=== PATIENT | male | born 2000 | race Caucasian/White ===

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

== ENCOUNTER 2019-09-24 18:37 | Emergency (ER) | payer MEDICAID ==
--- NOTE | 2019-09-24 19:03 | ERPHSYRPT ---
- History of Present Illness Time Seen by Provider: 09/24/19 18:49 Source: patient Exam Limitations: no limitations Patient Subjective Stated Complaint: PT states "I am pretty sure I have a hemmrhoid. I also vomited yesterday and it looked like I threw up a can of chew , it was grainy." Triage Nursing Assessment: Pt presented alert and oriented X 3, skin pwd Pt ambulates with an upright steady gait, able to speak in clear full sentences pt in no apparent respiratory distress. Physician History: 19 years old male presented in the ER with a chief complaint of rectal pain and possible hemorrhoids. Patient reports he has been having loose watery stool for the last couple of days and usually he has constipation needing to strain. For the last couple of days he has noticed a small lump coming out and at times it gets reduced. No bleeding. Is complaining of dull to sharp pain moderate intensity without any significant aggravating or relieving factors. He has been taking a lot of ibuprofen lately and yesterday had a vomiting of coffee- ground color. He denies any epigastric or abdominal pain at present. No nausea. Allergies/Adverse Reactions: ketorolac tromethamine [From Toradol] Allergy (Mild, Verified 06/19/18 20:09) Hives CHEST BECAME RED ET INFLAMMED codeine [Codeine] Adverse Reaction (Mild, Verified 06/19/18 20:09) "WOUND UP" hydrocodone Adverse Reaction (Mild, Verified 06/19/18 20:09) "WOUND UP" Hx Tetanus, Diphtheria Vaccination/Date Given: Yes Hx Influenza Vaccination/Date Given: No Hx Pneumococcal Vaccination/Date Given: No Immunizations Up to Date: Yes Travel Risk - International Travel Have you traveled outside of the country in past 3 weeks: No Have you or anyone close to you been diagnosed with or: No Do your reside in a community with a known COVID-19 case?: Yes If Yes where:: [place] - Coronavirus Screening Has patient experienced Coronavirus symptoms: No - Review of Systems Constitutional: No Symptoms Eyes: No Symptoms, Foreign Body Sensation Respiratory: No Symptoms Cardiac: No Symptoms Genitourinary Symptoms: No Symptoms Musculoskeletal: No Symptoms Skin: No Symptoms Psychological: No Symptoms Endocrine: No Symptoms Hematologic/Lymphatic: No Symptoms Immunological/Allergic: No Symptoms - Past Medical History Pertinent Past Medical History: No Neurological History: No Pertinent History, Other ENT History: No Pertinent History Cardiac History: No Pertinent History Respiratory History: Asthma, Pneumonia Endocrine Medical History: No Pertinent History Musculoskeletal History: No Pertinent History GI Medical History: No Pertinent History History: No Pertinent History Psycho-Social History: Attention Deficit Disorder Male Reproductive Disorders: No Pertinent History Other Medical History: TUBES IN KEE EARS, kidney stones - Past Surgical History Past Surgical History: Yes Neuro Surgical History: No Pertinent History Cardiac: No Pertinent History Respiratory: No Pertinent History Gastrointestinal: No Pertinent History Genitourinary: No Pertinent History Musculoskeletal: Orthopedic Surgery Male Surgical History: No Pertinent History Other Surgical History: arches to bilat feet - Social History Smoking Status: Current every day smoker How long have you smoked: years Exposure to second hand smoke: Yes Alcohol Use: None Drug Use: none Patient Lives Alone: No Significant Family History: no pertinent family hx - Nursing Vital Signs Nursing Vital Signs: Initial Vital Signs Temperature 97.8 F 09/24/19 18:43 Pulse Rate 86 09/24/19 18:43 Respiratory Rate 18 09/24/19 18:43 Blood Pressure 135/76 09/24/19 18:43 O2 Sat by Pulse Oximetry 98 09/24/19 18:43 Pain Scale Pain Intensity 5 - Physical Exam General Appearance: no apparent distress Eye Exam: PERRL/EOMI Ears, Nose, Throat Exam: normal ENT inspection, pharynx normal Neck Exam: normal inspection, supple, full range of motion Respiratory Exam: normal breath sounds, lungs clear Cardiovascular Exam: regular rate/rhythm, normal heart sounds Gastrointestinal/Abdomen Exam: soft, normal bowel sounds, No tenderness, No distention, No mass, No guarding Rectal Exam: normal rectal tone, hemorrhoids (Small reducible hemorrhoid at 3 o' clock position. No bleeding. No fissure) Back Exam: normal inspection Extremity Exam: normal inspection Neurologic Exam: alert, oriented x 3, cooperative Skin Exam: normal color, warm SpO2 Interpretation: normal SpO2: 98 O2 Delivery: Room Air - Course Nursing assessment & vital signs reviewed: Yes Ordered Tests: Active Orders 24 hr Category Date Time Status CBC W DIFF Stat Lab 09/24/19 19:20 Completed CMP Stat Lab 09/24/19 19:20 Completed LIPASE Stat Lab 09/24/19 19:20 Completed Lab/Rad Data: Laboratory Result Diagrams 09/24/19 19:20 09/24/19 19:20 Laboratory Results 09/24/19 09/24/19 Range/Units 19:20 19:20 WBC 5.8 (4.0-10.5) K/mm3 RBC 4.79 (4.1-5.6) M/mm3 Hgb 13.5 (12.5-18.0) gm/dl Hct 40.5 L (42-50) % MCV 84.6 (78-100) fl MCH 28.2 (26-32) pg MCHC 33.3 (32-36) g/dl RDW 13.3 (11.5-14.0) % Plt Count 201 (150-450) K/mm3 MPV 10.6 (7.5-11.0) fl Gran % 38.1 (36.0-66.0) % Eos # (Auto) 0.14 (0-0.5) Absolute Lymphs (auto) 2.91 (1.0-4.6) Absolute Monos (auto) 0.51 (0.0-1.3) Lymphocytes % 49.9 H (24.0-44.0) % Monocytes % 8.7 (0.0-12.0) % Eosinophils % 2.4 (0.00-5.0) % Basophils % 0.9 (0.0-0.4) % Absolute Granulocytes 2.22 (1.4-6.9) Basophils # 0.05 (0-0.4) Sodium 142 (137-145) mmol/L Potassium 3.4 L (3.5-5.1) mmol/L Chloride 104 (98-107) mmol/L Carbon Dioxide 29 (22-30) mmol/L Anion Gap 12.3 (5-15) MEQ/L BUN 12 (9-20) mg/dL Creatinine 0.81 (0.66-1.25) mg/dL Estimated GFR > 60.0 ML/MIN Glucose 89 (74-106) mg/dL Calcium 9.4 (8.4-10.2) mg/dL Total Bilirubin 0.70 (0.2-1.3) mg/dL AST 15 L (17-59) U/L ALT 12 (0-50) U/L Alkaline Phosphatase 56 (38-126) U/L Serum Total Protein 6.8 (6.3-8.2) g/dL Albumin 4.4 (3.5-5.0) g/dL Lipase 33 (23-300) U/L - Progress Progress: unchanged, pain not gone completely Progress Note: 19 years old is evaluated for hemorrhoids and recommended Anusol cream, increase fiber supplement and stool softener. Patient reported having some coffee-ground emesis and epigastric pain and also taking lots of NSAIDs recently. I have checked H&H which is normal and renal functions are normal. Advised not to take NSAIDs anymore and take Tylenol as needed. Currently patient does not have any abdominal pain or tenderness on exam. Stable for discharge with outpatient follow-up. Counseled pt/family regarding: lab results, diagnosis, need for follow-up - Departure Departure Disposition: Home Clinical Impression: Hemorrhoids Qualifiers: Hemorrhoid type: unspecified Qualified Code(s): K64.9 - Unspecified hemorrhoids Condition: Stable Critical Care Time: No Referrals: JASIEL MARR [Primary Care Provider] - Follow Up with PCP/3 days LEELA KIM MD [ASSOCIATE STAFF] - Follow Up with PCP/3 days Instructions: Hemorrhoids (DC) Additional Instructions: Increase fiber supplements and diet. Take stool softener/MiraLAX regularly. Follow-up with primary care and general surgery for reevaluation. Take Tylenol as needed. Try to avoid taking NSAIDs/ibuprofen. Prescriptions: Hydrocortisone 2.5% 30 gm [Anusol-Hc 2.5% Cream 30 gm] 30 gm TP BID #1 tube
[2019-09-24 19:24] LABS: Absolute Neutrophil Ct (ANC) 2.22 (1.4-6.9); BASOPHIL % 0.9 % (0.0-0.4); Basophil (Absolute #) 0.05 (0-0.4); Eosinophil % 2.4 % (0.00-5.0); Eosinophil (Absolute #) 0.14 (0-0.5); Hematocrit 40.5 % (42-50); Hemoglobin 13.5 gm/dl (12.5-18.0); Lymphocyte (Absolute #) 2.91 (1.0-4.6); Lymphocytes % 49.9 % (24.0-44.0); Mean Cell Volume 84.6 fl (78-100); Mean Corpuscular Hemoglobin 28.2 pg (26-32); Mean Corpuscular Hgb Concent. 33.3 g/dl (32-36); Mean Platelet Volume 10.6 fl (7.5-11.0); Monocyte (Absolute #) 0.51 (0.0-1.3); Monocytes % 8.7 % (0.0-12.0); Neutrophil % 38.1 % (36.0-66.0); Platelet Count 201 K/mm3 (150-450); Red Blood Count 4.79 M/mm3 (4.1-5.6); Red Cell Distribution Width 13.3 % (11.5-14.0); White Blood Count 5.8 K/mm3 (4.0-10.5)
[2019-09-24 19:35] LABS: ALBUMIN 4.4 g/dL (3.5-5.0); ALKALINE PHOSPHATASE 56 U/L (38-126); ANION GAP 12.3 MEQ/L (5-15); BLOOD UREA NITROGEN 12 mg/dL (9-20); CHLORIDE 104 mmol/L (98-107); Calcium 9.4 mg/dL (8.4-10.2); Carbon Dioxide 29 mmol/L (22-30); Creatinine 1 0.81 mg/dL (0.66-1.25); Glucose 89 mg/dL (74-106); LIPASE 33 U/L (23-300); Potassium 3.4 mmol/L (3.5-5.1); SGOT/AST 15 U/L (17-59); SGPT/ALT 12 U/L (0-50); SODIUM 142 mmol/L (137-145); Total Protein 6.8 g/dL (6.3-8.2)
[2019-09-24 19:55] VITALS: BP 115/72; PULSE 90
[2019-09-25 01:25] VITALS: O2SAT 98
== END 2019-09-24 19:56 | disposition home or self-care (01) ==
LOC: ED 18:37
DX: K64.9 Unspecified hemorrhoids (principal)
CPT/HCPCS: 36415; 80053; 83690; 85025; 99283

== ENCOUNTER 2020-05-26 15:41 | Emergency (ER) | payer SELFPAY ==
[2020-05-26 15:57] VITALS: O2SAT 100
[2020-05-26] MEDS ORDERED: TORAdol 30 mg Injection IM ONE (16:15)
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
[2020-05-26 16:36] VITALS: BP 124/82; PULSE 74
== END 2020-05-26 16:34 | disposition home or self-care (01) ==
LOC: ED 15:41
DX: M54.9 Dorsalgia, unspecified (principal)
CPT/HCPCS: 99283

== ENCOUNTER 2021-02-15 13:21 | Emergency (ER) | payer OTHER ==
[2021-02-15] MEDS ORDERED: XYLOCAINE 1% HCL 20 ML MDV IJ ONE (13:22)
[2021-02-15] MEDS ORDERED: Rocephin 1000 MG INJ IM ONE (13:35)
--- NOTE | 2021-02-15 13:41 | ERPHSYRPT ---
- History of Present Illness Time Seen by Provider: 02/15/21 13:36 Source: patient Exam Limitations: no limitations Patient Subjective Stated Complaint: pain and swelling in left raymond for 2-3 days Physician History: 20-year-old male without any significant past medical history came to the emergency room with complaining of pustule on her right groin which started to 3 days ago he started to squeeze it without any success. He started having some low-grade fever today and the area in his right groin turned into abscess with pustule formation. He denies any other symptoms including nausea vomiting urine trouble or diarrhea. Timing/Duration: day(s) (2-3 days) Severity: moderate Associated Symptoms: chills, fever Allergies/Adverse Reactions: ketorolac tromethamine [From Toradol] Allergy (Mild, Verified 05/26/20 15:57) Hives CHEST BECAME RED ET INFLAMMED codeine [Codeine] Adverse Reaction (Mild, Verified 05/26/20 15:57) "WOUND UP" hydrocodone Adverse Reaction (Mild, Verified 05/26/20 15:57) "WOUND UP" Hx Tetanus, Diphtheria Vaccination/Date Given: No Hx Influenza Vaccination/Date Given: No Hx Pneumococcal Vaccination/Date Given: No - Review of Systems Constitutional: No Fever, No Chills Eyes: No Symptoms Ears, Nose, & Throat: No Symptoms Respiratory: No Cough, No Dyspnea Cardiac: No Chest Pain, No Edema, No Syncope Abdominal/Gastrointestinal: No Abdominal Pain, No Nausea, No Vomiting, No Diarrhea Genitourinary Symptoms: No Dysuria Musculoskeletal: No Back Pain, No Neck Pain Skin: Cellulitis (right groin), No Rash Neurological: No Dizziness, No Focal Weakness, No Sensory Changes Psychological: No Symptoms Endocrine: No Symptoms All Other Systems: Reviewed and Negative - Past Medical History Pertinent Past Medical History: No Neurological History: No Pertinent History, Other ENT History: No Pertinent History Cardiac History: No Pertinent History Respiratory History: Asthma, Pneumonia Endocrine Medical History: No Pertinent History Musculoskeletal History: No Pertinent History GI Medical History: No Pertinent History History: No Pertinent History Psycho-Social History: Attention Deficit Disorder Male Reproductive Disorders: No Pertinent History Other Medical History: TUBES IN KEE EARS, kidney stones - Past Surgical History Past Surgical History: Yes Neuro Surgical History: No Pertinent History Cardiac: No Pertinent History Respiratory: No Pertinent History Gastrointestinal: No Pertinent History Genitourinary: No Pertinent History Musculoskeletal: Orthopedic Surgery Male Surgical History: No Pertinent History Other Surgical History: Bilat feet - Social History Smoking Status: Current every day smoker How long have you smoked: years Exposure to second hand smoke: Yes Alcohol Use: None Drug Use: none Patient Lives Alone: Yes Significant Family History: no pertinent family hx - Physical Exam General Appearance: no apparent distress, alert Eye Exam: PERRL/EOMI, eyes nml inspection Ears, Nose, Throat Exam: normal ENT inspection, TMs normal, pharynx normal, moist mucous membranes Neck Exam: normal inspection, non-tender, supple, full range of motion Respiratory Exam: normal breath sounds, lungs clear, No respiratory distress Cardiovascular Exam: regular rate/rhythm, normal heart sounds, normal peripheral pulses Gastrointestinal/Abdomen Exam: soft, normal bowel sounds, No tenderness, No mass Back Exam: normal inspection, normal range of motion, No CVA tenderness, No vertebral tenderness Extremity Exam: normal inspection, normal range of motion, pelvis stable Neurologic Exam: alert, oriented x 3, cooperative, normal mood/affect, nml cerebellar function, nml station & gait, sensation nml, No motor deficits Skin Exam: normal color, warm, dry, other (pustular area in right groin, inguinal area), No rash Lymphatic Exam: No adenopathy - Course Nursing assessment & vital signs reviewed: Yes Ordered Tests: Medication Summary Generic Name Dose Route Start Last Admin Trade Name Freq PRN Reason Stop Dose Admin Ceftriaxone Sodium 1,000 mg 02/15/21 13:35 Rocephin 1000 Mg Inj IM 02/15/21 13:36 STAT ONE - Progress Progress: unchanged Counseled pt/family regarding: diagnosis, need for follow-up - Departure Departure Disposition: Home Clinical Impression: Skin pustule, Abscess of groin, right Condition: Stable Critical Care Time: No Referrals: JASIEL MARR [Primary Care Provider] - Follow Up with PCP/3 days Instructions: Skin Abscess, Boil Additional Instructions: Discharge/Care Plan RADHA RILEY was seen on 02/15/21 in the Emergency Room. The patient was counseled regarding Diagnosis,Lab results, Imaging studies, need for follow up and when to return to the Emergency Room. Prescriptions given: Discharge Note I have spoken with the patient and/or caregivers. I have explained the patient's condition, diagnosis and treatment plan based on the information available to me at this time. I have answered the patient's and/or caregiver's questions and addressed any concerns. The patient and/or caregivers have as good understanding of the patient's diagnosis, condition and treatment plan as can be expected at this point. The vital signs have been stable. The patient's condition is stable and appropriate for discharge from the emergency department. The patient will pursue further outpatient evaluation with the primary care physician or other designated or consulting physician as outlined in the eileen sanchez instructions. The patient and/or caregivers are agreeable to this plan of care and follow-up instructions have been explained in detail. The patient and/or caregivers have received these instruction. The patient/and or caregivers are aware that any significant change in condition or worsening of symptoms should prompt an immediate return to this or the closest emergency department or call 911. RADHA RILEY was seen on 02/15/21 n the Emergency Room. At that time you were treated for an emergent condition, during your visit Laboratory, Radiology and/or other procedures may have been ordered. It is very important that you follow-up with your Primary Care Physician JASIEL MARR within the next 24-48 hours to review your Emergency Room visit and the final results of testing that was ordered. Some test results such as Urine Cultures, Blood Cultures, and other cultures if ordered will not be finalized for 24-48 hours. If you do not have a Primary Care Provider please call the medical records department at [phone] ext [phone] to obtain a copy of your results or you may sign into our patient portal to obtain these results by visiting us @ [email or web address] and completing the following steps: 1. Click on the Patient Portal link 2. Click the Patient Self Enrollment Link to complete the enrollment form and entering your 3. Once the enrollment form is completed you will receive an email with a temporary ID and password at the email address you provided. 4. Next choose a user name and password. Your user name must be at least 4 characters long and your password must be at least 4 characters long. 5. Choose a security question from the list and provide your answer to the question. If you already have signed into the Health Portal you may access your Health Care Information 21/12 by the following steps: 1. Login to our website @ [email or web address] 2. Enter your original user name and password. FAQS The [facility] Health Portal is an online tool that contains your Lab Results, Radiology Reports, Visit History, Discharge Instructions and Health Summary Lab and Radiology Results will not be available for 72 hours on the portal. The Portal is a secure site, passwords are encryted and URLs are re-written so they cannot be copied and pasted. You and authorized family members are the only ones who can access your Portal. Also there is a timeout feature that protects your information if you leave the Portal page open. If you have technical difficulty please use the Contact Us link on the page this will allow you to submit any questions you have regarding the Portal or you may contact the Medical Record Department at [phone] ext [phone]. Prescriptions: Mupirocin [Bactroban OINTMENT] 1 gm TOP BID #30 cm Cephalexin Mh 500 mg [Keflex 500 mg] 500 mg PO Q6H #40 cap
[2021-02-15] MEDS ORDERED: Rocephin 1000 MG INJ ONE (13:54)
[2021-02-15 14:02] VITALS: BP 129/71; PULSE 91; O2SAT 99
== END 2021-02-15 14:10 | disposition home or self-care (01) ==
LOC: ED 13:21
DX: L08.9 Local infection of the skin and subcutaneous tissue, unspecified (principal); L02.214 Cutaneous abscess of groin; R50.9 Fever, unspecified
CPT/HCPCS: 96372; 99283; J0696

== ENCOUNTER 2021-08-20 11:19 | Emergency (ER) | payer OTHER ==
--- NOTE | 2021-08-20 12:05 | ERPHSYRPT ---
- History of Present Illness Time Seen by Provider: 08/20/21 11:30 Historian: patient Exam Limitations: no limitations Patient Subjective Stated Complaint: pt here for pain epigastirc and under both ribs that goes through to back woke him up this am, and is better with pepto Triage Nursing Assessment: pt alert, resp easy, face mask in place, abd soft, pain to epigastirc area reproductible Physician History: Patient is a 21-year-old male presents to our ED for evaluation of epigastric pain which he experienced last night shortly after going to bed. Patient awoke with epigastric pain radiating to his back. Pain lasted approximately 2 to 3 hours. Pain resolved after taking Pepto-Bismol. Patient currently asympto matic. Pain spanned across epigastrium. It radiated into the back. Patient had several bouts of nonbilious nonbloody emesis. Patient is otherwise healthy. No medical problems. Patient does not take medications or supplements. No fever. No trauma. No diarrhea. No rash. Patient voices no other complaints or concerns at this time. Timing/Duration: today Activities at Onset: none Quality: aching Abdominal Pain Onset Location: epigastric Pain Radiation: back Severity of Pain-Max: moderate Severity of Pain-Current: mild Modifying Factors: Improves With: nothing Associated Symptoms: nausea, vomiting, No diarrhea Previous symptoms: no prior history Allergies/Adverse Reactions: ketorolac tromethamine [From Toradol] Allergy (Mild, Verified 08/20/21 11:36) Hives CHEST BECAME RED ET INFLAMMED codeine [Codeine] Adverse Reaction (Mild, Verified 08/20/21 11:36) "WOUND UP" hydrocodone Adverse Reaction (Mild, Verified 08/20/21 11:36) "WOUND UP" Hx Tetanus, Diphtheria Vaccination/Date Given: No Hx Influenza Vaccination/Date Given: No Hx Pneumococcal Vaccination/Date Given: No Immunizations Up to Date: Yes Travel Risk - International Travel Have you traveled outside of the country in past 3 weeks: No - Coronavirus Screening Are you exhibiting any of the following symptoms?: No Close contact with a COVID-19 positive Pt in past 14-21 Days: No - Vaccine Status Have you recieved a Covid-19 vaccination: No - Review of Systems Constitutional: No Symptoms, No Fever, No Chills Eyes: No Symptoms Ears, Nose, & Throat: No Symptoms Respiratory: No Symptoms, No Cough, No Dyspnea Cardiac: No Symptoms, No Chest Pain, No Edema, No Syncope Abdominal/Gastrointestinal: No Symptoms, No Abdominal Pain, No Nausea, No Vomiting, No Diarrhea Genitourinary Symptoms: No Symptoms, No Dysuria Musculoskeletal: No Symptoms, No Back Pain, No Neck Pain Skin: No Symptoms, No Rash Neurological: No Symptoms, No Dizziness, No Focal Weakness, No Sensory Changes Psychological: No Symptoms Endocrine: No Symptoms Hematologic/Lymphatic: No Symptoms Immunological/Allergic: No Symptoms All Other Systems: Reviewed and Negative - Past Medical History Pertinent Past Medical History: No Neurological History: No Pertinent History, Other ENT History: No Pertinent History Cardiac History: No Pertinent History Respiratory History: Asthma, Pneumonia Endocrine Medical History: No Pertinent History Musculoskeletal History: No Pertinent History GI Medical History: No Pertinent History History: No Pertinent History Psycho-Social History: Attention Deficit Disorder Male Reproductive Disorders: No Pertinent History Other Medical History: TUBES IN KEE EARS, kidney stones - Past Surgical History Past Surgical History: Yes Neuro Surgical History: No Pertinent History Cardiac: No Pertinent History Respiratory: No Pertinent History Gastrointestinal: No Pertinent History Genitourinary: No Pertinent History Musculoskeletal: Orthopedic Surgery Male Surgical History: No Pertinent History Other Surgical History: Bilat feet - Social History Smoking Status: Current some day smoker How long have you smoked: years Exposure to second hand smoke: Yes Alcohol Use: None Drug Use: none Patient Lives Alone: No Significant Family History: no pertinent family hx - Nursing Vital Signs Nursing Vital Signs: Initial Vital Signs Temperature 97.5 F 08/20/21 11:25 Pulse Rate 88 08/20/21 11:25 Respiratory Rate 16 08/20/21 11:25 Blood Pressure 132/87 08/20/21 11:25 O2 Sat by Pulse Oximetry 10 L 08/20/21 11:25 Pain Scale Pain Intensity 2 - Physical Exam General Appearance: no apparent distress, alert Eye Exam: PERRL/EOMI, eyes nml inspection Ears, Nose, Throat Exam: normal ENT inspection, pharynx normal, moist mucous membranes Neck Exam: normal inspection, non-tender, supple, full range of motion Respiratory Exam: normal breath sounds, lungs clear, airway intact, No respiratory distress Cardiovascular Exam: regular rate/rhythm, normal heart sounds Gastrointestinal/Abdomen Exam: soft, No tenderness, No mass Back Exam: normal inspection, normal range of motion, No CVA tenderness, No ve rtebral tenderness Extremity Exam: normal inspection, normal range of motion, pelvis stable Neurologic Exam: alert, oriented x 3, cooperative, normal mood/affect, nml cerebellar function, sensation nml, No motor deficits Skin Exam: normal color, warm, dry Lymphatic Exam: No adenopathy SpO2 Interpretation: normal SpO2: 100 O2 Delivery: Room Air - Course Nursing assessment & vital signs reviewed: Yes EKG Interpreted by Me: RATE Ordered Tests: Active Orders 24 hr Category Date Time Status Admissions Evaluator STAT Care 08/20/21 11:57 Active IV Insertion STAT Care 08/20/21 11:56 Active Pulse Oximetry (ED) STAT Care 08/20/21 11:56 Active CBC W DIFF Stat Lab 08/20/21 12:10 Completed CMP Stat Lab 08/20/21 12:10 Completed LIPASE Stat Lab 08/20/21 12:10 Completed TROPONIN Q3H Lab 08/20/21 12:10 Completed TROPONIN Q3H Lab 08/20/21 15:00 Ordered TROPONIN Q3H Lab 08/20/21 18:00 Ordered TROPONIN Q3H Lab 08/20/21 21:00 Ordered TROPONIN Q3H Lab 08/21/21 00:00 Ordered Urine Triage Profile Stat Lab 08/20/21 12:02 Completed Medication Summary Discontinued Medications Generic Name Dose Route Start Last Admin Trade Name Freq PRN Reason Stop Dose Admin Potassium Chloride 40 meq 08/20/21 12:57 Potassium Chloride 10 Meq Tablet PO 08/20/21 12:58 STAT ONE Lab/Rad Data: Laboratory Result Diagrams 08/20/21 12:10 08/20/21 12:10 Laboratory Results 08/20/21 08/20/21 08/20/21 Range/Units 12:10 12:10 12:10 WBC 5.5 (4.0-10.5) K/mm3 RBC 5.14 (4.1-5.6) M/mm3 Hgb 14.2 (12.5-18.0) gm/dl Hct 42.1 (42-50) % MCV 81.9 (78-100) fl MCH 27.6 (26-32) pg MCHC 33.7 (32-36) g/dl RDW 14.2 H (11.5-14.0) % Plt Count 196 (150-450) K/mm3 MPV 10.1 (7.5-11.0) fl Gran % 39.6 (36.0-66.0) % Eos # (Auto) 0.07 (0-0.5) Absolute Lymphs (auto) 2.65 (1.0-4.6) Absolute Monos (auto) 0.54 (0.0-1.3) Lymphocytes % 48.6 H (24.0-44.0) % Monocytes % 9.9 (0.0-12.0) % Eosinophils % 1.3 (0.00-5.0) % Basophils % 0.6 (0.0-0.4) % Absolute Granulocytes 2.16 (1.4-6.9) Basophils # 0.03 (0-0.4) Sodium 139 (137-145) mmol/L Potassium 3.4 L (3.5-5.1) mmol/L Chloride 102 (98-107) mmol/L Carbon Dioxide 27 (22-30) mmol/L Anion Gap 14.1 (5-15) MEQ/L BUN 10 (9-20) mg/dL Creatinine 0.73 (0.66-1.25) mg/dL Estimated GFR > 60.0 ML/MIN Glucose 80 (74-106) mg/dL Calcium 9.7 (8.4-10.2) mg/dL Total Bilirubin 1.00 (0.2-1.3) mg/dL AST 22 (17-59) U/L ALT 16 (0-50) U/L Alkaline Phosphatase 64 (38-126) U/L Troponin I < 0.012 (0.000-0.034) ng/mL Serum Total Protein 7.4 (6.3-8.2) g/dL Albumin 4.6 (3.5-5.0) g/dL Lipase 32 (23-300) U/L Urine Opiates Level (NEGATIVE) Ur Methadone (NEGATIVE) Urine Barbiturates (NEGATIVE) Ur Phencyclidine (PCP) (NEGATIVE) Urine Amphetamine (NEGATIVE) U Benzodiazepine Level (NEGATIVE) Urine Cocaine (NEGATIVE) Urine Marijuana (THC) (NEGATIVE) 08/20/21 Range/Units 12:02 WBC (4.0-10.5) K/mm3 RBC (4.1-5.6) M/mm3 Hgb (12.5-18.0) gm/dl Hct (42-50) % MCV (78-100) fl MCH (26-32) pg MCHC (32-36) g/dl RDW (11.5-14.0) % Plt Count (150-450) K/mm3 MPV (7.5-11.0) fl Gran % (36.0-66.0) % Eos # (Auto) (0-0.5) Absolute Lymphs (auto) (1.0-4.6) Absolute Monos (auto) (0.0-1.3) Lymphocytes % (24.0-44.0) % Monocytes % (0.0-12.0) % Eosinophils % (0.00-5.0) % Basophils % (0.0-0.4) % Absolute Granulocytes (1.4-6.9) Basophils # (0-0.4) Sodium (137-145) mmol/L Potassium (3.5-5.1) mmol/L Chloride (98-107) mmol/L Carbon Dioxide (22-30) mmol/L Anion Gap (5-15) MEQ/L BUN (9-20) mg/dL Creatinine (0.66-1.25) mg/dL Estimated GFR ML/MIN Glucose (74-106) mg/dL Calcium (8.4-10.2) mg/dL Total Bilirubin (0.2-1.3) mg/dL AST (17-59) U/L ALT (0-50) U/L Alkaline Phosphatase (38-126) U/L Troponin I (0.000-0.034) ng/mL Serum Total Protein (6.3-8.2) g/dL Albumin (3.5-5.0) g/dL Lipase (23-300) U/L Urine Opiates Level NEGATIVE (NEGATIVE) Ur Methadone NEGATIVE (NEGATIVE) Urine Barbiturates NEGATIVE (NEGATIVE) Ur Phencyclidine (PCP) NEGATIVE (NEGATIVE) Urine Amphetamine NEGATIVE (NEGATIVE) U Benzodiazepine Level NEGATIVE (NEGATIVE) Urine Cocaine NEGATIVE (NEGATIVE) Urine Marijuana (THC) NEGATIVE (NEGATIVE) - Progress Progress: improved Progress Note: Patient reassessed. He remains asymptomatic. Vitals stable. Laboratory work- up reveals hypokalemia. Patient received a dose of oral potassium. Patient symptoms occurred while he was laying flat. Suspect that this is reflux. Patient is otherwise healthy. We will initiate a trial of Pepcid to see if this helps patient symptomology in light of the fact that symptoms resolved after Pepto-Bismol administration Will discharge home. Patient agrees to follow-up with primary care doctor within 48 hours for evaluation. Portions of this note were created with voice recognition technology. There may be grammatical, spelling, punctuation or sound alike errors 08/20/21 13:01 Counseled pt/family regarding: lab results, diagnosis, need for follow-up - Departure Departure Disposition: Home Clinical Impression: Epigastric pain, Hypokalemia, Reflux gastritis Condition: Stable Critical Care Time: No Referrals: JASIEL MARR [Primary Care Provider] - Follow up/PCP as directed Additional Instructions: Discharge/Care Plan RADHA RILEY PEPPER was seen on 08/20/21 in the Emergency Room. The patient was counseled regarding Diagnosis,Lab results, Imaging studies, need for follow up and when to return to the Emergency Room. Prescriptions given: Discharge Note I have spoken with the patient and/or caregivers. I have explained the patient's condition, diagnosis and treatment plan based on the information available to me at this time. I have answered the patient's and/or caregiver's questions and addressed any concerns. The patient and/or caregivers have as good understanding of the patient's diagnosis, condition and treatment plan as can be expected at this point. The vital signs have been stable. The patient's condition is stable and appropriate for discharge from the emergency department. The patient will pursue further outpatient evaluation with the primary care physician or other designated or consulting physician as outlined in the discharge instructions. The patient and/or caregivers are agreeable to this plan of care and follow-up instructions have been explained in detail. The patient and/or caregivers have received these instruction. The patient/and or caregivers are aware that any significant change in condition or worsening of symptoms should prompt an immediate return to this or the closest emergency department or call 911. Prescriptions: Famotidine [Pepcid] 40 mg PO DAILY 14 Days #14 tablet
[2021-08-20 12:28] LABS: Absolute Neutrophil Ct (ANC) 2.16 (1.4-6.9); Basophil (Absolute #) 0.03 (0-0.4); Eosinophil % 1.3 % (0.00-5.0); Eosinophil (Absolute #) 0.07 (0-0.5); Hematocrit 42.1 % (42-50); Hemoglobin 14.2 gm/dl (12.5-18.0); Lymphocyte (Absolute #) 2.65 (1.0-4.6); Lymphocytes % 48.6 % (24.0-44.0); Mean Cell Volume 81.9 fl (78-100); Mean Corpuscular Hemoglobin 27.6 pg (26-32); Mean Corpuscular Hgb Concent. 33.7 g/dl (32-36); Mean Platelet Volume 10.1 fl (7.5-11.0); Monocyte (Absolute #) 0.54 (0.0-1.3); Monocytes % 9.9 % (0.0-12.0); Neutrophil % 39.6 % (36.0-66.0); Platelet Count 196 K/mm3 (150-450); Red Blood Count 5.14 M/mm3 (4.1-5.6); Red Cell Distribution Width 14.2 % (11.5-14.0); White Blood Count 5.5 K/mm3 (4.0-10.5)
[2021-08-20 12:40] LABS: ALBUMIN 4.6 g/dL (3.5-5.0); ALKALINE PHOSPHATASE 64 U/L (38-126); ANION GAP 14.1 MEQ/L (5-15); BLOOD UREA NITROGEN 10 mg/dL (9-20); CHLORIDE 102 mmol/L (98-107); Calcium 9.7 mg/dL (8.4-10.2); Carbon Dioxide 27 mmol/L (22-30); Creatinine 1 0.73 mg/dL (0.66-1.25); EST GLOMERULAR FILTRATION RATE > 60.0 ML/MIN; Glucose 80 mg/dL (74-106); LIPASE 32 U/L (23-300); Potassium 3.4 mmol/L (3.5-5.1); SGOT/AST 22 U/L (17-59); SGPT/ALT 16 U/L (0-50); SODIUM 139 mmol/L (137-145); Total Protein 7.4 g/dL (6.3-8.2)
[2021-08-20 12:48] LABS: Amphetamine,Urine NEGATIVE (NEGATIVE); Barbiturate,Urine NEGATIVE (NEGATIVE); Benzodiazepine,Urine NEGATIVE (NEGATIVE); Cocaine,Urine NEGATIVE (NEGATIVE); Methadone,Urine NEGATIVE (NEGATIVE); Opiate,Urine NEGATIVE (NEGATIVE); PCP,Urine NEGATIVE (NEGATIVE); THC,Urine NEGATIVE (NEGATIVE)
[2021-08-20] MEDS ORDERED: Klor Con 10 MEQ PO ONE ×2 (12:57→13:02)
[2021-08-20 13:03] VITALS: BP 127/73; PULSE 78; O2SAT 100
== END 2021-08-20 13:40 | disposition home or self-care (01) ==
LOC: ED 11:19
DX: K21.9 Gastro-esophageal reflux disease without esophagitis (principal); K29.60 Other gastritis without bleeding; E87.6 Hypokalemia; R10.13 Epigastric pain; R11.2 Nausea with vomiting, unspecified; Z72.0 Tobacco use
CPT/HCPCS: 36000; 36415; 80053; 80307; 83690; 84484; 85025; 85379; 93041; 94760; 99284; A9270-GY